=== PATIENT | male | born 1945 | race Asian ===

== ENCOUNTER → 2023-06-21 | Outpatient (CLI) | payer MEDICAID, SELFPAY ==
--- NOTE | 2023-06-21 13:41 | NEURO ---
NCS and/or EMG Patient Report Ordering Doctor: MARILEE GILLIS DATE OF SERVICE: 06/21/23 Clinical Summary: 78 year old male patient with symptoms of numbness/tingling in the left upper extremity and heaviness in the left leg. Nerve Conduction Studies Summary: The left median motor conduction velocity is reduced in the forearm segment. The left peroneal-EDB CMAP amplitude dropped 42% across the fibular head - indicative of partial motor conduction block but no corresponding drop in the peroneal motor conduction velocity. The left tibial-AH CMAP distal latency was prolonged. Needle Examination Summary: Needle examination of select muscles of the left upper and lower extremity demonstrated increased insertional activity and spontaneous activity (positive sharp waves and fibrillation potentials) in the left deltoid muscle. There was a higher proportion of motor unit action potentials with reduced recruitment, increased amplitude, increased duration, and polyphasia in the left deltoid, biceps, and triceps muscles. 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
== END | disposition home or self-care (01) ==
PROVIDERS: PCP Nurse Practitioner Family; Referring Provider Psychiatry & Neurology Neurology; Visit Provider Psychiatry & Neurology Neurology
DX: R26.81 Unsteadiness on feet (principal)
CPT/HCPCS: 95886; 95912